=== PATIENT | female | born 1950 | race Caucasian/White ===

== ENCOUNTER → 2016-06-28 | Outpatient (CLI) | payer OTHER ==
--- NOTE | 2016-06-28 14:31 | CT ---
EXAM DESCRIPTION: Abdomen/Pelvis w/wo Contrast CLINICAL HISTORY: ABD PN COMPARISON: September 20, 2014 TECHNIQUE: Pre and postcontrast CT images of the abdomen and pelvis are obtained. CT scan done according to ALARA (As Low As Reasonably Achievable). FINDINGS: Visualized lung bases are unremarkable. Low-attenuation lesions of the right lobe liver are stable in size and number compared to previous likely representing simple cyst. Spleen, pancreas, adrenal glands, and gallbladder are unremarkable. The described cystic lesion of the tail the pancreas from previous exam is not appreciated on today's exam. Abdominal vasculature shows moderate atherosclerotic disease of the abdominal aorta. Kidneys show nonobstructing 2 mm calcification in the posterior mid to upper pole calyx of the right kidney. No ureteral calcification or obstruction is seen. Tiny 5 mm probable cortical cyst of the medial mid pole right kidney is seen. Urinary bladder fills with contrast on delayed images and is unremarkable. The uterus is small in size. Small 10 mm somewhat exophytic uterine fibroid on the right is seen. No abnormal adnexal mass is identified. The appendix is retrocecal and within normal limits. No small bowel obstruction is seen. Mild scattered diverticuli of the colon are seen without associated inflammatory changes or fluid collections. Surgical suture line of the sigmoid colon is seen. This is new from previous. Portion of the sigmoid colon contain most of the diverticuli is been resected. No pathologic lymphadenopathy. Osseous structures show no aggressive bony lesions. Moderate spondylitic changes of the spine are seen. Dextrocurvature of the upper spine is noted. IMPRESSION: Multiple simple appearing hepatic cysts are identified. Nonobstructing right nephrolithiasis is noted. Interval postsurgical changes from partial resection of the sigmoid colon. Colon diverticulosis without CT evidence of diverticulitis is noted. Electronically signed by: Johan Nunn MD 06/28/2016 2:19 PM CDT
== END | disposition home or self-care (01) ==
LOC: CT 13:04
PROVIDERS: ATTEND Nurse Practitioner Family
DX: R10.84 Generalized abdominal pain (principal)

== ENCOUNTER → 2016-06-28 | Outpatient (CLI) | payer OTHER | END | disposition home or self-care (01) | LOC: GMA 13:17 | PROVIDERS: ATTEND Nurse Practitioner Family | DX: R10.84 Generalized abdominal pain (principal) ==

== ENCOUNTER 2016-12-17 07:18 | Emergency (ER) | payer OTHER ==
[2016-12-17 07:40] VITALS: TEMP 99
[2016-12-17] MEDS ORDERED: LACTATED RINGERS 1,000 ML IVS ONE (07:42)
--- NOTE | 2016-12-17 07:43 | ED.PDOC ---
History of Present Illness - General Chief Complaint: GI Problem Stated Complaint: Diarrhea x 4 days, abd cramping Time Seen by Provider: 12/17/16 07:41 Source: patient - History of Present Illness Initial Comments: Vidhi Maldonado 66 y/o female stated that for the last 4 days had watery diarrhea and burning abdominal cramps no nausea/vomiting ,no ill contact ,no foreign travel.No recent antibiotic use,no fever /chills. Timing/Duration: constant, other - 4 days Severity: moderate Improving Factors: nothing Worsening Factors: eating Associated Symptoms: other - see HPI Allergies/Adverse Reactions: Allergies Cyclobenzaprine [From Flexeril] Allergy (Intermediate, Verified 12/17/16 07:30) Rash Home Medications: Ambulatory Orders Gabapentin [Neurontin] 300 mg PO BID 12/18/15 Hydrocodone-Acetaminophen [Hydrocodone/Acetaminophen 5-325 mg] 1 tab PO BID 03/22 Esomeprazole Magnesium [Nexium] 40 mg PO DAILY 12/17/16 Hyoscyamine Sulfate [Levsin] 0.125 mg PO TID #20 tab 12/17/16 Review of Systems - Review of Systems Constitutional: States: no symptoms reported EENTM: States: no symptoms reported Respiratory: States: no symptoms reported Cardiology: States: no symptoms reported Gastrointestinal/Abdominal: States: see HPI Genitourinary: States: no symptoms reported Past Medical History (General) - Patient Medical History Hx Asthma: No Hx Hypertension: No Hx Diabetes: No Hx Other PMH: Yes - chronic LBP-disc herniation w/radiculopathy Surgical History: other - colon resection, - Vaccination History Hx Tetanus, Diphtheria Vaccination: No Hx Influenza Vaccination: Yes - 2016 Hx Pneumococcal Vaccination: No - Social History Hx Tobacco Use: Yes - Female History Patient : No Family Medical History - Family History Mother Family History: No Known Living Status: Still Living Physical Exam - Physical Exam General Appearance: Alert, No apparent distress Eye Exam: bilateral normal Ears, Nose, Throat: hearing grossly normal, normal ENT inspection Neck: non-tender, supple Respiratory: lungs clear, normal breath sounds Cardiovascular/Chest: regular rate, rhythm, no murmur Peripheral Pulses: radial,right: 1+, radial,left: 1+ Gastrointestinal/Abdominal: normal bowel sounds, non tender, soft, no organomegaly Back Exam: normal inspection, no vertebral tenderness Extremity: no pedal edema, no calf tenderness Progress - Progress Progress: 12/17/16 08:25 Vital Signs - 8 hr 12/17/16 07:28 Temperature 99.0 F Pulse Rate [ 84 Left Radial] Respiratory 18 Rate Blood Pressure 119/97 [Left Arm] O2 Sat by Pulse 97 Oximetry - Results/Orders Results/Orders: Vital Signs - 8 hr 12/17/16 07:28 Temperature 99.0 F Pulse Rate [ 84 Left Radial] Respiratory 18 Rate Blood Pressure 119/97 [Left Arm] O2 Sat by Pulse 97 Oximetry Laboratory Tests 12/17/16 12/17/16 07:55 07:55 WBC 9.1 RBC 4.51 Hgb 14.2 Hct 41.3 MCV 91.7 MCH 31.6 H MCHC 34.5 RDW 12.3 Plt Count 180 MPV 9.6 Absolute Neuts (auto) 7.30 H Absolute Lymphs (auto) 1.10 Absolute Monos (auto) 0.60 Absolute Eos (auto) 0.00 Absolute Basos (auto) 0.00 Neutrophils % 80.7 H Lymphocytes % 12.0 L Monocytes % 6.8 Eosinophils % 0.1 L Basophils % 0.4 Sodium 136 Potassium 4.0 Chloride 102 Carbon Dioxide 24 Anion Gap 14.0 BUN 20 H Creatinine 0.91 BUN/Creatinine Ratio 22.0 H Random Glucose 107 H Serum Osmolality 275.0 Calcium 9.9 Total Bilirubin 0.6 AST 38 ALT 30 Alkaline Phosphatase 80 Serum Total Protein 8.5 H Albumin 4.7 Globulin 3.8 H Albumin/Globulin Ratio 1.2 Lipase 22 Departure - Departure Clinical Impression: Diarrhea Qualifiers: Diarrhea type: unspecified type Qualified Code(s): R19.7 - Diarrhea, unspecified Time of Disposition: 08:32 Disposition: Discharge to Home or Self Care Condition: Good Departure Forms: ED Discharge - Pt. Copy, Patient Portal Self Enrollment Instructions: Diarrhea (Alternative Therapy), Diarrhea, Probiotics May Decrease Intensity and Duration of Diarrhea Due to Infection, Loperamide Referrals: Roland Caceres MD [Primary Care Provider] - 1-2 Weeks Prescriptions: Hyoscyamine Sulfate [Levsin] 0.125 mg PO TID #20 tab Home Medications: Ambulatory Orders Gabapentin [Neurontin] 300 mg PO BID 12/18/15 Hydrocodone-Acetaminophen [Hydrocodone/Acetaminophen 5-325 mg] 1 tab PO BID 03/22 Esomeprazole Magnesium [Nexium] 40 mg PO DAILY 12/17/16 Hyoscyamine Sulfate [Levsin] 0.125 mg PO TID #20 tab 12/17/16 Additional Instructions: Follow up with primary md 12/19 2016 call for appointment
[2016-12-17] MEDS ORDERED: PROMETHAZINE HCL INJ 25 MG/ML VIAL IM ONE (08:27)
[2016-12-17] MEDS ORDERED: DICYCLOMINE HCL INJ 20 MG/2 ML AMP IM ONE (08:27)
[2016-12-17 09:12] VITALS: BP 123/71; O2SAT 98
== END 2016-12-17 09:08 | disposition home or self-care (01) ==
LOC: ER 07:18
DX: R19.7 Diarrhea, unspecified (principal); M51.16 Intervertebral disc disorders with radiculopathy, lumbar region; Z87.891 Personal history of nicotine dependence; Z88.8 Allergy status to other drugs, medicaments and biological substances; Z79.899 Other long term (current) drug therapy
CPT/HCPCS: 36415; 80053; 83690; 85025; J0500; J2550; J7120

== ENCOUNTER 2017-12-19 10:09 | Emergency (ER) | payer MEDICARE, OTHER ==
[2017-12-19 10:37] VITALS: TEMP 98.3
--- NOTE | 2017-12-19 10:48 | ED.PDOC ---
History of Present Illness - General Chief Complaint: Chest Pain/MT Stated Complaint: chest pain Time Seen by Provider: 12/19/17 10:48 Source: patient Exam Limitations: no limitations - History of Present Illness Initial Comments: Vidhi Corona 67 y/o female stated that she had non radiating intermittent sharp substernal chest pains for the last 3 days and occasional dizziness then while at work today had another episode which lingered longer called up her Md advised to come here to er.Took one baby asa.Denies previous episode of chest pain symptoms.No diaphoresi,nausea/vomiting ,SOB,numbness. Timing/Duration: days - 3, intermittent Severity: moderate Location: substernal Activities at Onset: activity Prior Chest Pain/Cardiac Workup: no prior chest pain Improving Factors: nothing Worsening Factors: nothing Nitro Today/Relief: no nitro taken today, provided by ED Aspirin Treatment Today: 81 mg x 1 Associated Symptoms: other - see hpi Allergies/Adverse Reactions: Allergies Cyclobenzaprine [From Flexeril] Allergy (Intermediate, Verified 12/17/16 07:30) Rash Home Medications: Ambulatory Orders Gabapentin [Neurontin] 300 mg PO BID 12/18/15 Hydrocodone-Acetaminophen [Hydrocodone/Acetaminophen 5-325 mg] 1 tab PO BID 03/22 Esomeprazole Magnesium [Nexium] 40 mg PO DAILY 12/17/16 Hyoscyamine Sulfate [Levsin] 0.125 mg PO TID #20 tab 12/17/16 Review of Systems - Review of Systems Constitutional: States: no symptoms reported EENTM: States: no symptoms reported Respiratory: States: no symptoms reported Cardiology: States: see HPI Genitourinary: States: no symptoms reported Musculoskeletal: States: no symptoms reported Skin: States: no symptoms reported Neurological: States: no symptoms reported Past Medical History (General) - Patient Medical History Hx Seizures: No Hx Stroke: No Hx Dementia: No Hx Asthma: No Hx of COPD: No Hx Cardiac Disorders: No Hx Congestive Heart Failure: No Hx Pacemaker: No Hx Hypertension: No Hx Thyroid Disease: No Hx Diabetes: No Hx Gastroesophageal Reflux: Yes Hx Renal Disease: No Hx Cancer: No Hx of HIV: No Hx Hepatitis C: No Hx MRSA: No Surgical History: other - colon resection-diverticulitis - Vaccination History Hx Tetanus, Diphtheria Vaccination: No Hx Influenza Vaccination: Yes Hx Pneumococcal Vaccination: No Immunizations Up to Date: No - Social History Hx Tobacco Use: Yes Years Tobacco Use: 51 Cigarettes Packs Per Day: 6 - one pack Q 3 days Hx Chewing Tobacco Use: No Hx Alcohol Use: No Hx Substance Use: No Hx Substance Use Treatment: No Hx Depression: No Feels Threatened In Home Enviroment: No Feels Threatened In a Relationship: No Hx Physical Abuse: No Hx Emotional Abuse: No Hx Suspected Abuse: No - Activities of Daily Living Patient Lives Alone: No Hospice Agency (if applicable):: None - Female History Patient is a Female of Child Bearing Age (10 -59 yrs old): No Patient : No Family Medical History - Family History Mother Family History: No Known Living Status: Still Living Hx Family Stroke: Yes - mom Hx Cardiac Disease: Yes - brother Hx Family Cancer: Yes - dad-colon cancer Physical Exam - Physical Exam General Appearance: Alert, Comfortable, No apparent distress Eyes, Ears, Nose, Throat Exam: normal ENT inspection Neck: non-tender, full range of motion, supple, normal inspection Respiratory: chest non-tender, lungs clear, normal breath sounds Cardiovascular/Chest: normal peripheral pulses, regular rate, rhythm, no murmur Peripheral Pulses: radial,right: 2+, radial,left: 2+ Gastrointestinal/Abdominal: normal bowel sounds, non tender, soft, no organomegaly Neurologic: no motor/sensory deficits, alert, oriented x 3 Skin Exam: normal color, warm/dry Lymphatic: no adenopathy Progress - Progress Progress: 12/19/17 12:13 Vital Signs - 8 hr 12/19/17 12/19/17 10:09 11:09 Temperature 98.3 F Pulse Rate [ 90 77 apical] Respiratory 18 18 Rate Blood Pressure 143/80 153/72 [left aem] O2 Sat by Pulse 97 76 L Oximetry - Results/Orders Results/Orders: 12/19/17 10:49 IV Care:Saline Lock per Protoc QSHIFT 12/19/17 11:00 EKG STAT 12/19/17 14:15 Heparin Premix [Heparin/D5w 25,000U/500ML] 25,000 units Premix Bag 1 bag IVS PRN 12/19/17 14:30 Nitroglycerin/D5w IV 50,000 mcg Premix Bottle 1 bottle IVS PRN 12/19/17 14:31 PROTHROMBIN TIME Stat PTT [PARTIAL THROMBOPLASTIN TIME] Stat Laboratory Results - last 24 hr 12/19/17 12/19/17 12/19/17 10:57 10:57 11:28 WBC 6.2 RBC 3.98 L Hgb 12.8 Hct 37.3 MCV 93.6 MCH 32.1 H MCHC 34.5 RDW 12.4 Plt Count 182 MPV 10.4 Absolute Neuts (auto) 4.00 Absolute Lymphs (auto) 1.70 Absolute Monos (auto) 0.30 Absolute Eos (auto) 0.10 Absolute Basos (auto) 0.00 Neutrophils % 64.9 Lymphocytes % 28.0 Monocytes % 5.4 Eosinophils % 1.1 Basophils % 0.6 D-Dimer, Quantitative 0.41 Sodium Potassium Chloride Carbon Dioxide Anion Gap BUN Creatinine BUN/Creatinine Ratio Random Glucose Serum Osmolality Calcium Total Bilirubin 0.7 Direct Bilirubin 0.2 Indirect Bilirubin 0.5 AST 27 ALT 22 Alkaline Phosphatase 59 Creatine Kinase 163 H CK-MB (CK-2) 2.1 CK-MB (CK-2) % Not Reportable Troponin I < 0.02 B-Natriuretic Peptide 165.0 H Serum Total Protein 6.8 Albumin 4.0 12/19/17 12/19/17 11:29 13:11 WBC RBC Hgb Hct MCV MCH MCHC RDW Plt Count MPV Absolute Neuts (auto) Absolute Lymphs (auto) Absolute Monos (auto) Absolute Eos (auto) Absolute Basos (auto) Neutrophils % Lymphocytes % Monocytes % Eosinophils % Basophils % D-Dimer, Quantitative Sodium 140 Potassium 3.6 Chloride 109 Carbon Dioxide 23 Anion Gap 11.6 L BUN 19 H Creatinine 0.92 BUN/Creatinine Ratio 20.7 H Random Glucose 113 H Serum Osmolality 282.5 Calcium 9.1 Total Bilirubin Direct Bilirubin Indirect Bilirubin AST ALT Alkaline Phosphatase Creatine Kinase CK-MB (CK-2) CK-MB (CK-2) % Troponin I < 0.02 B-Natriuretic Peptide Serum Total Protein Albumin - EKG/XRAY/CT EKG: Sinus Comments: HR-86;left atrial enlargement;Q-wave lead 3 XRAY: chest - normal portable chest/radiologist CT Ordered: No CT Interpretation Call Back: No Departure - Departure Clinical Impression: Chest pain Qualifiers: Chest pain type: chest pain due to myocardial ischemia Ischemic chest pain type : unstable angina pectoris Qualified Code(s): I20.0 - Unstable angina Time of Disposition: 15:39 Disposition: Transfer to Hospital Condition: Fair Departure Forms: Patient Portal Self Enrollment Referrals: Roland Caceres MD [Primary Care Provider] - 1-2 Weeks Home Medications: Ambulatory Orders Gabapentin [Neurontin] 300 mg PO BID 12/18/15 Hydrocodone-Acetaminophen [Hydrocodone/Acetaminophen 5-325 mg] 1 tab PO BID 03/22 Esomeprazole Magnesium [Nexium] 40 mg PO DAILY 12/17/16 Hyoscyamine Sulfate [Levsin] 0.125 mg PO TID #20 tab 12/17/16 Transfer to Outside Facility - Transfer Information Accepting Provider:: Dr.Zardain-Er Wray;Dr. Sewell-Plastic Panel Installer [facility] Accepting Facility: [facility] Reason for Transfer: required specialist not available - respiratory therapy director
[2017-12-19] MEDS ORDERED: ASPIRIN (CHEWABLE) 81 MG TAB PO ONE (10:49)
--- NOTE | 2017-12-19 11:11 | RAD ---
EXAM DESCRIPTION: Chest,1 View CLINICAL HISTORY: pain COMPARISON: 24 February 2010 TECHNIQUE: AP portable chest FINDINGS: The lungs are clear. There is no infiltrate or effusion. The heart is normal size. Deformity of the left clavicle is observed from prior fracturing. IMPRESSION: Normal portable chest Electronically signed by: Gabriel Whyte MD 12/19/2017 11:09 AM CDT
[2017-12-19] MEDS ORDERED: NITROGLYCERIN 0.4 MG 25 EA TAB SL ONE (12:15)
[2017-12-19] MEDS ORDERED: HEPARIN PREMIX 25,000 UNITS in PREMIX BAG 1 BAG IVS SCH (14:15)
[2017-12-19] MEDS ORDERED: NITROGLYCERIN/D5W IV 50,000 MCG in PREMIX BOTTLE 1 BOTTLE IVS SCH (14:30)
[2017-12-19] MEDS ORDERED: NITROGLYCERIN/D5W IV 250 ML IVS ONE (15:07)
[2017-12-19] MEDS ORDERED: HEPARIN PREMIX 500 ML ONE (15:07)
[2017-12-19 15:51] VITALS: O2SAT 98
[2017-12-19 15:52] VITALS: BP 142/92
== END 2017-12-19 16:04 | disposition short-term general hospital (02) ==
LOC: ER 10:09
DX: I20.0 Unstable angina (principal); K21.9 Gastro-esophageal reflux disease without esophagitis; F17.210 Nicotine dependence, cigarettes, uncomplicated; Z79.899 Other long term (current) drug therapy; Z88.8 Allergy status to other drugs, medicaments and biological substances
CPT/HCPCS: 36415; 71045; 80048; 80076; 82550; 82553; 83880; 84484; 85025; 85379; 85610; 85730; 93005; J1644

== ENCOUNTER → 2018-01-15 | Outpatient (CLI) | payer MEDICARE, OTHER ==
[2018-01-28 13:39] VITALS: BP 127/70; O2SAT 96
== END ==
LOC: CR 08:00
PROVIDERS: ATTEND Anesthesiology Pain Medicine
DX: Z95.1 Presence of aortocoronary bypass graft (principal)

== ENCOUNTER → 2018-03-19 | Outpatient (CLI) | payer MEDICARE, OTHER ==
--- NOTE | 2018-03-19 18:06 | US ---
EXAM DESCRIPTION: Soft Tissue,Extremity: ULTRASOUND. CLINICAL HISTORY: 67 years Female UPPER BACK PAIN. Palpable mass right mid back. COMPARISON: None Available. TECHNIQUE: Transcutaneous scanning: Greenberg-scale and Doppler modes. FINDINGS: Relatively homogeneous fatty echoes in the fusiform mass with circumscribed margins and wider than tall orientation. Nonvascular. Dimensions are 5.6 x 5.3 x 1.1 cm. Surrounded by subcutaneous adipose tissue. No discreet cyst. No overlying skin changes or abnormal vascularity. No large calcifications or parenchymal edema. IMPRESSION: Most likely 5.6 cm subcutaneous lipoma corresponding to palpable mass. Electronically signed by: Bradly Collins MD 03/19/2018 6:05 PM [employer]LE[employer] ADMISSIONS COUNSELOR
== END ==
LOC: US 09:35
PROVIDERS: ATTEND Family Medicine
DX: M54.6 Pain in thoracic spine (principal); D17.9 Benign lipomatous neoplasm, unspecified

== ENCOUNTER → 2018-05-27 | Outpatient (CLI) | payer MEDICARE, OTHER | LOC: GMAHI 14:33 | PROVIDERS: ATTEND Nurse Practitioner Family | DX: G44.209 Tension-type headache, unspecified, not intractable (principal) ==

== ENCOUNTER → 2018-05-28 | Outpatient (CLI) | payer MEDICARE, OTHER ==
--- NOTE | 2018-05-28 15:33 | MRI ---
EXAM DESCRIPTION: Brain w/wo Contrast: Magnetic Resonance Imaging. CLINICAL HISTORY: 67 years Female HEADACHES COMPARISON: MRI scan of the brain 06/27/2011. TECHNIQUE: Multiplanar, high-field MRI, multiple conventional sequences, without and with gadolinium IV contrast. No adverse reactions. Multiple axial diffusion sequences. FINDINGS: Normal FLAIR and T2-weighted signal in the periventricular white matter and hawley-white matter junctions of the cerebral hemispheres. . Normal signal in the bilateral basal ganglia. No hemorrhage, no cerebral edema, no mass-effect. Normal contrast enhancement. Normal signal in the brainstem and cerebellar hemispheres. No hemorrhage, no cerebral edema, no mass-effect. Normal contrast enhancement. Concordance of the diffusion and non-diffusion sequences with no evidence of acute or subacute infarction. Cortical sulci, ventricles, and other CSF spaces, and the subdural spaces are normally configured for patients age. No effacement or displacement. No midline shift. No extra-axial hemorrhage. Normal contrast enhancement. Normal flow signal void in the major vessels of the [place], and the venous sinuses. IACs are symmetric bilaterally. No fluid or enhancement in the bilateral mastoid air cells. No mass effect in the bilateral Cerebellopontine angles. Normal contrast enhancement. Pituitary gland occupies most of the sella. Normal contrast enhancement. Base of the cerebellar tonsils is above the foramen magnum. Mucoperiosteal thickening in the bilateral ethmoid air cells. Lucy bullosa left middle turbinate. Remaining sinuses are unremarkable.. The bony calvarium is intact. IMPRESSION: 1. No intra-axial extra-axial hemorrhage. No mass effect or midline shift. Normal contrast enhancement. 2. Normal noncontrast MRI diffusion study with no evidence of diffusion restriction, acute or subacute infarction. 3. Minimal chronic paranasal sinusitis. Electronically signed by: Bradly Collins MD 05/28/2018 3:29 PM [facility]
== END ==
LOC: MRI 10:00
PROVIDERS: ATTEND Nurse Practitioner Family
DX: G44.209 Tension-type headache, unspecified, not intractable (principal); J32.9 Chronic sinusitis, unspecified

== ENCOUNTER 2018-09-14 06:38 | Emergency (ER) | payer MEDICARE, OTHER ==
--- NOTE | 2018-09-14 06:59 | ED.PDOC ---
History of Present Illness - General Source: patient, family Exam Limitations: no limitations - History of Present Illness Initial Comments: patient comes in with severe 7/10 headache to the left frontal area and side. She describes as severe, burning, and without photophobia or phonophobia. No aura, hx of migraines, nor emesis. She does not usually get headaches. She has tried tylenol at home without improvement. Patient has hx of CAD with bypass last year and so when heart rate got to 106 and BP to 149/90 patient's was really worried. Patient is primarily concerned with headache and overall aches of neck and legs. She has not been sick and denies any fever, chills, cough, nasal congestion, nausea, emesis, work out in the heat, or diarrhea. Past medical hx of CAD and currently smokes. Timing/Duration: waxing and waning, other - 7 hours Quality: severe, other - burning Head Injury Location: frontal Recent Head Trauma: no recent headache/trauma, occasional headaches - last one 1 year ago and was sinus Improving Factors: nothing Worsening Factors: nothing Associated Symptoms: denies symptoms <LORRAINE DENG - Last Filed: 09/14/18 06:54> <Santi Disla - Last Filed: 09/14/18 09:44> - General Chief Complaint: Headache Stated Complaint: headache since Sat. night, nausea, dizzy, leg pain Time Seen by Provider: 09/14/18 06:53 - History of Present Illness Allergies/Adverse Reactions: Allergies Cyclobenzaprine [From Flexeril] Allergy (Intermediate, Verified 09/14/18 06:48) Hives Home Medications: Ambulatory Orders Gabapentin [Neurontin] 300 mg PO TID 12/18/15 Hydrocodone-Acetaminophen [Hydrocodone/Acetaminophen 5-325 mg] 1 tab PO Q4HR PRN 12/18/15 Esomeprazole Magnesium [Nexium] 40 mg PO DAILY 12/17/16 Aspirin [Aspirin Adult Low Dose] 81 mg PO DAILY 09/14/18 Atorvastatin Calcium 40 mg PO DAILY 09/14/18 Carvedilol [Coreg] 12.5 mg PO BID 09/14/18 Clopidogrel Bisulfate 75 mg PO DAILY 09/14/18 Ketorolac Tromethamine [Toradol Tabs] 10 mg PO Q6HRS #10 tab 09/14/18 Lisinopril 5 mg PO BID 09/14/18 Nicotine [Nicotine Transdermal Syst] 7 mg TD DAILY 09/14/18 Ondansetron HCl [Zofran] 4 mg PO Q6HRS #10 tab 09/14/18 Review of Systems - Review of Systems Constitutional: States: no symptoms reported, malaise. Denies: chills, fever EENTM: States: no symptoms reported. Denies: eye pain, ear pain, nose congestion, throat pain Respiratory: States: no symptoms reported. Denies: cough, short of breath Cardiology: States: no symptoms reported. Denies: chest pain, palpitations Gastrointestinal/Abdominal: States: no symptoms reported. Denies: abdominal pain, nausea, vomiting Musculoskeletal: States: see HPI, muscle pain, neck pain Skin: States: no symptoms reported Neurological: States: see HPI <LORRAINE DENG - Last Filed: 09/14/18 06:54> Past Medical History (General) - Patient Medical History Hx Seizures: No Hx Stroke: No Hx Dementia: No Hx Asthma: No Hx of COPD: No Hx Cardiac Disorders: Yes - Hx OK Hx Congestive Heart Failure: No Hx Pacemaker: No Hx Hypertension: No Hx Thyroid Disease: No Hx Diabetes: No Hx Gastroesophageal Reflux: Yes Hx Renal Disease: No Hx Cancer: Yes - skin LFA Hx of HIV: No Hx Hepatitis C: No Hx MRSA: No Surgical History: other - Vaccination History Hx Tetanus, Diphtheria Vaccination: Yes Hx Influenza Vaccination: Yes Hx Pneumococcal Vaccination: No - Social History Hx Tobacco Use: Yes Hx Chewing Tobacco Use: No Hx Alcohol Use: No Hx Substance Use: No Hx Substance Use Treatment: No Hx Depression: No Hx Physical Abuse: No Hx Emotional Abuse: No Hx Suspected Abuse: No - Female History Patient : No <LORRAINE DENG - Last Filed: 09/14/18 06:54> Family Medical History - Family History Mother Family History: No Known Living Status: Still Living Hx Family Stroke: Yes - mom Hx Cardiac Disease: Yes - brother Hx Family Cancer: Yes - dad-colon cancer <LORRAINE DENG - Last Filed: 09/14/18 06:54> Physical Exam - Physical Exam General Appearance: Alert, Comfortable, No apparent distress Eyes, Ears, Nose, Throat Exam: normal ENT inspection, TMs normal, pharynx normal Neck: non-tender, full range of motion, supple, normal inspection, trachea midline Cardiovascular/Chest: normal peripheral pulses, regular rate, rhythm, no edema, no gallop, no JVD, no murmur Respiratory: chest non-tender, lungs clear, normal breath sounds, no respiratory distress Gastrointestinal/Abdominal: normal bowel sounds, non tender, soft, no organomegaly, no pulsatile mass Back Exam: no CVA tenderness, other - mass right side of flank Extremity: normal range of motion, non-tender Mental Status: alert, oriented x 3 medical technologist microbiology Exam: normal hearing, normal speech, PERRL Coordination/Gait: normal finger to nose, normal gait Motor/Sensory: no motor deficit, no sensory deficit, no pronator drift Lower Extremity DTR: left, patellar: 2+, right, patellar: 2+ Skin Exam: warm/dry <LORRAINE DENG - Last Filed: 09/14/18 06:54> Progress - Progress Progress: 09/14/18 07:00 report and care given to oncoming physician who will be taking care of patient over. <LORRAINE DENG - Last Filed: 09/14/18 06:54> - Progress Progress: 09/14/18 09:39 Patient's headache improved with toradol. Her urine and BUN/Cr indicated significant dehydration. She was given another liter of NS. Her headache improved. Repeat neurological exam was negative for focal signs. The patient was discharged with an RX for Toradol and Zofran. E.R. warnings given. <Santi Disla - Last Filed: 09/14/18 09:44> Departure <LORRAINE DENG - Last Filed: 09/14/18 06:54> - Departure Diet: resume usual diet, other - increase fluids Activity: increase activity as tolerated <Santi Disla - Last Filed: 09/14/18 09:44> - Departure Clinical Impression: Headache Disposition: Discharge to Home or Self Care Condition: Good Departure Forms: ED Discharge - Pt. Copy, Patient Portal Self Enrollment Instructions: DI for Headache Referrals: Roland Caceres MD [Primary Care Provider] - 1-2 Weeks Prescriptions: Ketorolac Tromethamine [Toradol Tabs] 10 mg PO Q6HRS #10 tab Ondansetron HCl [Zofran] 4 mg PO Q6HRS #10 tab Home Medications: Ambulatory Orders Gabapentin [Neurontin] 300 mg PO TID 12/18/15 Hydrocodone-Acetaminophen [Hydrocodone/Acetaminophen 5-325 mg] 1 tab PO Q4HR PRN 12/18/15 Esomeprazole Magnesium [Nexium] 40 mg PO DAILY 12/17/16 Aspirin [Aspirin Adult Low Dose] 81 mg PO DAILY 09/14/18 Atorvastatin Calcium 40 mg PO DAILY 09/14/18 Carvedilol [Coreg] 12.5 mg PO BID 09/14/18 Clopidogrel Bisulfate 75 mg PO DAILY 09/14/18 Ketorolac Tromethamine [Toradol Tabs] 10 mg PO Q6HRS #10 tab 09/14/18 Lisinopril 5 mg PO BID 09/14/18 Nicotine [Nicotine Transdermal Syst] 7 mg TD DAILY 09/14/18 Ondansetron HCl [Zofran] 4 mg PO Q6HRS #10 tab 09/14/18 Additional Instructions: Take medications as prescribed. Return to the E.R. for worsening headache, new symptoms, or failure of the headache to resolve completely in 24 hours.
[2018-09-14] MEDS: SODIUM CHLORIDE 0.9% 1000ML 1,000 ML IVS ONE ×2 (07:09→08:00)
[2018-09-14] MEDS: KETOROLAC TROMETHAMINE INJ 30 MG/ML VIAL IV ONE (07:10)
[2018-09-14 08:33] VITALS: O2SAT 96
[2018-09-14 09:33] VITALS: TEMP 97.4
[2018-09-14 09:57] VITALS: BP 144/76
== END 2018-09-14 09:59 | disposition home or self-care (01) ==
LOC: ER 06:38
DX: R51 Headache (principal); E86.0 Dehydration; M54.2 Cervicalgia; M79.604 Pain in right leg; M79.605 Pain in left leg; I25.10 Atherosclerotic heart disease of native coronary artery without angina pectoris; F17.200 Nicotine dependence, unspecified, uncomplicated; I25.2 Old myocardial infarction; K21.9 Gastro-esophageal reflux disease without esophagitis; Z95.1 Presence of aortocoronary bypass graft; Z85.828 Personal history of other malignant neoplasm of skin; Z79.82 Long term (current) use of aspirin; Z79.899 Other long term (current) drug therapy; Z88.8 Allergy status to other drugs, medicaments and biological substances
CPT/HCPCS: 36415; 80053; 81001; 82550; 82553; 84484; 85025; 93005; J1885; J7030

== ENCOUNTER → 2018-11-03 | Outpatient (CLI) | payer MEDICARE, OTHER | LOC: GMAM 11:13 | PROVIDERS: ATTEND Family Medicine | DX: E04.9 Nontoxic goiter, unspecified (principal); I10 Essential (primary) hypertension ==

== ENCOUNTER → 2019-11-25 | Outpatient (CLI) | payer MEDICARE, OTHER | END | disposition home or self-care (01) | LOC: GMAM 16:35 | PROVIDERS: ATTEND Family Medicine | DX: E04.9 Nontoxic goiter, unspecified (principal); R71.8 Other abnormality of red blood cells ==

== ENCOUNTER → 2020-02-17 | Outpatient (CLI) | payer MEDICARE, OTHER | LOC: LAB.O 09:17 | PROVIDERS: ATTEND Nurse Practitioner Acute Care | DX: R10.84 Generalized abdominal pain (principal) ==